=== PATIENT | female | born 1995 | race Caucasian/White ===

== ENCOUNTER → 2017-07-30 | Outpatient (CLI) | payer SELFPAY | LOC: OCH 10:07 | DX: O02.1 Missed abortion (principal) | CPT/HCPCS: 36415; 84702 ==

== ENCOUNTER → 2017-08-01 | Outpatient (CLI) | payer SELFPAY | LOC: HH 13:35 | DX: O02.1 Missed abortion (principal) | CPT/HCPCS: 36415; 84702 ==